=== PATIENT | female | born 1980 | race Two or more races ===

== ENCOUNTER 2019-05-05 18:51 | Emergency (ER) | payer BC ==
[~2019-05-05] VITALS: Ht 165.1 cm; Wt 103.4 kg
[2019-05-05 19:59] LABS: BASO % 0 % (0-3); EOS # 0.2 x10^3/uL (0.0-0.7); EOS % 3 % (0-3); HEMATOCRIT 42.3 % (36.0-47.0); LYMPH # 2.5 x10^3/uL (1.0-4.8); LYMPH % 28 % (24-48); MEAN CORPUSCULAR HEMOGLOBIN 30 pg (25-35); MEAN CORPUSCULAR HGB CONC 33 g/dL (31-37); MEAN CORPUSCULAR VOLUME 91 fL (79-100); MONO # 0.7 x10^3/uL (0.0-1.1); MONO % 7 % (0-9); NEUT # 5.5 x10^3/uL (1.8-7.7); NEUT % 62 % (31-73); PLATELET COUNT 223 x10^3/uL (140-400); RED BLOOD COUNT 4.64 x10^6/uL (3.50-5.40); WHITE BLOOD COUNT 8.9 x10^3/uL (4.0-11.0)
[2019-05-05] MEDS ORDERED: ASPIRIN 325 MG TABLET PO ONE (20:00)
--- NOTE | 2019-05-05 20:03 | PHYS DOC ---
Adult General Chief Complaint Chief Complaint: CHEST PAIN [facility] HPI Patient is a 39 year old female who presented to ER today for evaluation of 3 day history of left-sided chest pain that radiated to her left arm. Patient denies any history hypertension, no history of diabetes, no history of coronary artery disease. Patient denies any recent travel or operation. She denies any history of blood clot disorder no family history of coronary artery disease. Patient denies any cough or fever. She says she had this type of chest pain in the past, was evaluated in the emergency room before did not find anything wrong. She denies any abdominal pain, no nausea vomiting. All other ROS is negative unless otherwise noted in HPI Review of Systems Review of Systems See above Current Medications Current Medications Current Medications Medications (Trade) Dose Ordered Sig/Honey Start Time Stop Time Status Last Admin Dose Admin Aspirin (Ashwin Aspirin) 325 mg 1X ONCE 05/05/19 20:00 05/05/19 20:01 DC 05/05/19 20:00 325 MG Potassium Chloride (Klor-Con) 40 meq 1X ONCE 05/05/19 22:30 05/05/19 22:31 DC 05/05/19 22:20 40 MEQ Allergies Allergies Allergies Coded Allergies Type Severity Reaction Last Updated Verified No Known Drug Allergies 05/05/19 No Physical Exam Physical Exam See above Constitutional: Well developed, well nourished, no acute distress, non-toxic appearance. [] HENT: Normocephalic, atraumatic, bilateral external ears normal, oropharynx moist, no oral exudates, nose normal. [] Eyes: PERRLA, EOMI, conjunctiva normal, no discharge. [] Neck: Normal range of motion, no tenderness, supple, no stridor. [] Cardiovascular:Heart rate regular rhythm, no murmur [] Lungs & Thorax: Bilateral breath sounds clear to auscultation [] Abdomen: Bowel sounds normal, soft, no tenderness, no masses, no pulsatile masses. [] Skin: Warm, dry, no erythema, no rash. [] Back: No tenderness, no CVA tenderness. [] Extremities: No tenderness, no cyanosis, no clubbing, ROM intact, no edema. [] Neurologic: Alert and oriented X 3, normal motor function, normal sensory function, no focal deficits noted. [] Psychologic: Affect normal, judgement normal, mood normal. [] Current Patient Data Vital Signs Vital Signs Date Time Temp Pulse Resp B/P (MAP) Pulse Ox O2 Delivery O2 Flow Rate FiO2 05/05/19 20:38 90 16 124/79 (94) 96 Room Air 05/05/19 19:03 98.7 98.7 Lab Values Laboratory Tests Test 05/05/19 19:25 05/05/19 20:05 White Blood Count 8.9 x10^3/uL (4.0-11.0) Red Blood Count 4.64 x10^6/uL (3.50-5.40) Hemoglobin 14.0 g/dL (12.0-15.5) Hematocrit 42.3 % (36.0-47.0) Mean Corpuscular Volume 91 fL (79-100) Mean Corpuscular Hemoglobin 30 pg (25-35) Mean Corpuscular Hemoglobin Concent 33 g/dL (31-37) Red Cell Distribution Width 13.0 % (11.5-14.5) Platelet Count 223 x10^3/uL (140-400) Neutrophils (%) (Auto) 62 % (31-73) Lymphocytes (%) (Auto) 28 % (24-48) Monocytes (%) (Auto) 7 % (0-9) Eosinophils (%) (Auto) 3 % (0-3) Basophils (%) (Auto) 0 % (0-3) Neutrophils # (Auto) 5.5 x10^3/uL (1.8-7.7) Lymphocytes # (Auto) 2.5 x10^3/uL (1.0-4.8) Monocytes # (Auto) 0.7 x10^3/uL (0.0-1.1) Eosinophils # (Auto) 0.2 x10^3/uL (0.0-0.7) Basophils # (Auto) 0.0 x10^3/uL (0.0-0.2) Prothrombin Time 12.2 SEC (11.7-14.0) Prothrombin Time INR 0.9 (0.8-1.1) D-Dimer (Molly) 0.31 ug/mlFEU (0.00-0.50) Sodium Level 141 mmol/L (136-145) Potassium Level 3.3 mmol/L (3.5-5.1) L Chloride Level 102 mmol/L (98-107) Carbon Dioxide Level 28 mmol/L (21-32) Anion Gap 11 (6-14) Blood Urea Nitrogen 11 mg/dL (7-20) Creatinine 0.8 mg/dL (0.6-1.0) Estimated GFR (Cockcroft-Gault) 79.0 BUN/Creatinine Ratio 14 (6-20) Glucose Level 111 mg/dL (70-99) H Calcium Level 9.0 mg/dL (8.5-10.1) Magnesium Level 1.7 mg/dL (1.8-2.4) L Total Bilirubin 0.3 mg/dL (0.2-1.0) Aspartate Amino Transferase (AST) 17 U/L (15-37) Alanine Aminotransferase (ALT) 24 U/L (14-59) Alkaline Phosphatase 118 U/L (46-116) H Troponin I Quantitative < 0.017 ng/mL (0.000-0.055) ZI-Mxw-A-Type Natriuretic Peptide 31 pg/mL (0-124) Total Protein 7.4 g/dL (6.4-8.2) Albumin 3.7 g/dL (3.4-5.0) Albumin/Globulin Ratio 1.0 (1.0-1.7) Lipase 124 U/L (73-393) Urine Collection Type Unknown Urine Color Yellow Urine Clarity Clear Urine pH 6.0 Urine Specific [place] 1.020 Urine Protein Negative mg/dL (NEG-TRACE) Urine Glucose (UA) Negative mg/dL (NEG) Urine Ketones (Stick) Negative mg/dL (NEG) Urine Blood Negative (NEG) Urine Nitrite Negative (NEG) Urine Bilirubin Negative (NEG) Urine Urobilinogen Dipstick 1.0 mg/dL (0.2 mg/dL) Urine Leukocyte Esterase Negative (NEG) Urine RBC Rare /HPF (0-2) Urine WBC 0 /HPF (0-4) Urine Squamous Epithelial Cells Mod /LPF Urine Amorphous Sediment Present /HPF Urine Bacteria 0 /HPF (0-FEW) Urine Mucus Mod /LPF Urine Test Negative (NEG) Laboratory Tests 05/05/19 19:25 Laboratory Tests 05/05/19 19:25 EKG EKG EKG was done and read by this physician at 1907, heart rate of 107 beats per minute, sinus tachycardia, no STEMI. Radiology/Procedures Radiology/Procedures [][facility] [address] [place] [address] IMAGING REPORT Signed PATIENT: AUBREY CRUZCOUNT: [id number] : 1980 LOCATION: ER AGE: 39 SEX: F EXAM STATUS: PRE ER ORD. PHYSICIAN: CALLY MCKEON DO REASON: CHEST PAIN /PREG TEST 16 PROCEDURE: PORTABLE CHEST 1V PORTABLE CHEST 1V Clinical History: Technique: AP view of the chest was obtained at 05/05/2019 7:47 PM. Comparison: None. Findings: The cardiomediastinal silhouette is normal. The pulmonary vasculature is normal. The lungs and pleural margins are clear. Impression: No evidence of an acute cardiopulmonary process. Electronically signed by: Raymon Burrell III, MD (05/05/2019 10:50 PM) [facility] DICTATED and SIGNED BY: RAYMON BURRELL III, MD DATE: 05/05/19 490 Course & Med Decision Making Course & Med Decision Making Pertinent Labs and Imaging studies reviewed. (See chart for details) [] Dragon Disclaimer Dragon Disclaimer This electronic medical record was generated, in whole or in part, using a voice recognition dictation system. Departure Departure Impression: Primary Impression: Chest pain Disposition: HOME, SELF-CARE Condition: STABLE Patient Instructions: Chest Pain (Nonspecific) The HEART Score for CP Pts HEART Score for Chest Pain: HEART Score for Chest Pain Response (Comments) Value History Slighlty/Non-Suspicious 0 ECG Normal 0 Age < 45 0 Risk Factors No Risk Factors 0 Troponin < Normal Limit 0 Total 0 Risk Factors: Risk Factors: DM, Current or recent (<one month) smoker, HTN, HLP, family history of CAD, obesity. Risk Scores: Score 0 - 3: 2.5% MACE over next 6 weeks - Discharge Home Score 4 - 6: 20.3% MACE over next 6 weeks - Admit for Clinical Observation Score 7 - 10: 72.7% MACE over next 6 weeks - Early Invasive Strategies CALLY MCKEON DO May 05, 2019 20:03
[2019-05-05 20:06] LABS: CREATININE 0.8 mg/dL (0.6-1.0); POTASSIUM 3.3 mmol/L (3.5-5.1)
[2019-05-05 20:11] LABS: ALBUMIN 3.7 g/dL (3.4-5.0); MAGNESIUM 1.7 mg/dL (1.8-2.4); TOTAL BILIRUBIN 0.3 mg/dL (0.2-1.0); TOTAL PROTEIN 7.4 g/dL (6.4-8.2)
[2019-05-05 20:12] LABS: PROTHROMBIN TIME PATIENT 12.2 SEC (11.7-14.0)
[2019-05-05 20:33] LABS: CLARITY,URINE CLEAR; COLOR,URINE YELLOW
[2019-05-05 20:34] LABS: BILIRUBIN,URINE NEGATIVE (NEG); NITRITE,URINE NEGATIVE (NEG); PROTEIN,URINE NEGATIVE (NEG-TRACE)
[2019-05-05 20:46] LABS: AMORPHOUS SEDIMENT,UR PRESENT /HPF; BACTERIA,URINE 0 /HPF (0-FEW); RBC,URINE RARE /HPF (0-2); SQUAMOUS EPITHELIAL CELL,UR MOD /LPF; WBC,URINE 0 /HPF (0-4)
[2019-05-05 22:22] LABS: U PREG PATIENT NEGATIVE (NEG)
[2019-05-05] MEDS ORDERED: POTASSIUM CHLORIDE 20 MEQ TABLET.ER. PO ONE (22:30)
--- NOTE | 2019-05-05 22:53 | RAD ---
PORTABLE CHEST 1V Clinical History: Technique: AP view of the chest was obtained at 05/05/2019 7:47 PM. Comparison: None. Findings: The cardiomediastinal silhouette is normal. The pulmonary vasculature is normal. The lungs and pleural margins are clear. Impression: No evidence of an acute cardiopulmonary process. Electronically signed by: Qamar Nieves III, MD (05/05/2019 10:50 PM) [facility]
[2019-05-05 23:38] VITALS: BP 120/71
--- NOTE | 2019-05-06 13:53 | EKG ---
[facility] [address] [place] [address] Test Date: 2019-05-05 Test Time: 19:07:47 Pat Name: AUBREY CRUZ Department: Room: Gender: F Manager Animation: : 1980 Requested By: CALLY MCKEON Order Number: [id number] Reading MD: Measurements Intervals [place] Rate: 107 P: 74 RI: 134 QRS: 12 QRSD: 86 T: 21 QT: 330 QTc: 440 Interpretive Statements SINUS TACHYCARDIA QRS(T) CONTOUR ABNORMALITY CONSIDER ANTEROLATERAL MYOCARDIAL DAMAGE POSSIBLY ABNORMAL ECG RI6.01 No previous ECG available for comparison
== END 2019-05-05 23:55 | disposition home or self-care (01) ==
LOC: ER 18:51
DX: R07.89 Other chest pain (principal); Z79.82 Long term (current) use of aspirin
CPT/HCPCS: 36415; 71045; 80053; 81001; 81025; 83690; 83735; 83880; 84484; 85025; 85379; 85610; 93005; 99285

== ENCOUNTER 2020-03-17 09:39 | Emergency (ER) | payer BC ==
[~2020-03-17] VITALS: Ht 165.1 cm; Wt 95.7 kg
[2020-03-17] MEDS ORDERED: IV NORMAL SALINE 1000ML BAG 1,000 ML IV ONE (10:00)
[2020-03-17] MEDS ORDERED: MORPHINE SULFATE 4 MG/ML VIAL. IV ONE (10:00)
[2020-03-17] MEDS ORDERED: ONDANSETRON PF 4 MG/2 ML VIAL. IVP ONE (10:00)
[2020-03-17 10:02] LABS: BILIRUBIN,URINE NEGATIVE (NEG); CLARITY,URINE CLEAR; COLOR,URINE YELLOW; NITRITE,URINE NEGATIVE (NEG); PROTEIN,URINE 30 mg/dL (NEG-TRACE); UROBILINOGEN,URINE 0.2 mg/dL (0.2 mg/dL)
--- NOTE | 2020-03-17 10:05 | PHYS DOC ---
Past Medical History Past Medical History: No Pertinent History Past Surgical History: No Surgical History Smoking Status: Former Smoker Alcohol Use: Occasionally Drug Use: None General Adult EDM: Chief Complaint: ABDOMINAL PAIN HPI: HPI: Patient is a 39 year old female who presented to ER today for evaluation of left flank pain that radiated to her left groin area started at 7 AM suddenly this morning. Patient also complains of nausea but no vomiting. Patient denies any fever, no diarrhea, no urinary frequency or urgency. Patient denies any history of kidney stone. Patient denies any pain at this in the past. Patient denies any cough or fever. Review of Systems: Review of Systems: Constitutional: Denies fever or chills. [] Eyes: Denies change in visual acuity. [] HENT: Denies nasal congestion or sore throat. [] Respiratory: Denies cough or shortness of breath. [] Cardiovascular: Denies chest pain or edema. [] GI: Positive for left side abdominal pain, no diarrhea, no vomiting : Denies dysuria. [] Musculoskeletal: Denies back pain or joint pain. [] Integument: Denies rash. [] Neurologic: Denies headache, focal weakness or sensory changes. [] Endocrine: Denies polyuria or polydipsia. [] Lymphatic: Denies swollen glands. [] Psychiatric: Denies depression or anxiety. [] Heart Score: Risk Factors: Risk Factors: DM, Current or recent (<one month) smoker, HTN, HLP, family history of CAD, obesity. Risk Scores: Score 0 - 3: 2.5% MACE over next 6 weeks - Discharge Home Score 4 - 6: 20.3% MACE over next 6 weeks - Admit for Clinical Observation Score 7 - 10: 72.7% MACE over next 6 weeks - Early Invasive Strategies Current Medications: Current Medications Medications (Trade) Dose Ordered Sig/Honey Start Time Stop Time Status Last Admin Dose Admin Morphine Sulfate (Morphine Sulfate) 4 mg 1X ONCE 03/17/20 10:00 03/17/20 10:01 DC Ondansetron HCl (Zofran) 4 mg 1X ONCE 03/17/20 10:00 03/17/20 10:01 DC Sodium Chloride 1,000 ml @ 1,000 mls/hr 1X ONCE 03/17/20 10:00 03/17/20 10:59 Allergies: Allergies: Allergies Coded Allergies Type Severity Reaction Last Updated Verified No Known Drug Allergies 05/05/19 No Physical Exam: PE: Constitutional: Well developed, well nourished, no acute distress, non-toxic appearance. [] HENT: Normocephalic, atraumatic, bilateral external ears normal, oropharynx moist, no oral exudates, nose normal. [] Eyes: PERRLA, EOMI, conjunctiva normal, no discharge. [] Neck: Normal range of motion, no tenderness, supple, no stridor. [] Cardiovascular:Heart rate regular rhythm, no murmur [] Lungs & Thorax: Bilateral breath sounds clear to auscultation [] Abdomen: Bowel sounds normal, soft, There is tenderness in LUQ AND LLQ AREA, NO REBOUND, NO GUARDING, no masses, no pulsatile masses. [] Skin: Warm, dry, no erythema, no rash. [] Back: No tenderness, Positive for left CVA tenderness. [] Extremities: No tenderness, no cyanosis, no clubbing, ROM intact, no edema. [] Neurologic: Alert and oriented X 3, normal motor function, normal sensory function, no focal deficits noted. [] Psychologic: Affect normal, judgement normal, mood normal. [] Current Patient Data: Labs: Laboratory Tests Test 03/17/20 09:50 03/17/20 09:55 03/17/20 10:00 Urine Collection Type Unknown Urine Color Yellow Urine Clarity Clear Urine pH 5.0 Urine Specific [place] 1.025 Urine Protein 30 mg/dL Urine Glucose (UA) Negative mg/dL Urine Ketones (Stick) Negative mg/dL Urine Blood Large Urine Nitrite Negative Urine Bilirubin Negative Urine Urobilinogen Dipstick 0.2 mg/dL Urine Leukocyte Esterase Negative Urine RBC >40 /HPF Urine WBC 0 /HPF Urine Squamous Epithelial Cells Few /LPF Urine Bacteria Few /HPF Urine Hyaline Casts Occasional /HPF Urine Mucus Slight /LPF Bedside Urine HCG, Qualitative Hcg negative White Blood Count 11.4 x10^3/uL Red Blood Count 4.69 x10^6/uL Hemoglobin 14.3 g/dL Hematocrit 42.9 % Mean Corpuscular Volume 92 fL Mean Corpuscular Hemoglobin 31 pg Mean Corpuscular Hemoglobin Concent 33 g/dL Red Cell Distribution Width 13.0 % Platelet Count 217 x10^3/uL Neutrophils (%) (Auto) 75 % Lymphocytes (%) (Auto) 18 % Monocytes (%) (Auto) 6 % Eosinophils (%) (Auto) 1 % Basophils (%) (Auto) 0 % Neutrophils # (Auto) 8.6 x10^3/uL Lymphocytes # (Auto) 2.0 x10^3/uL Monocytes # (Auto) 0.6 x10^3/uL Eosinophils # (Auto) 0.2 x10^3/uL Basophils # (Auto) 0.0 x10^3/uL Sodium Level 136 mmol/L Potassium Level 3.3 mmol/L Chloride Level 100 mmol/L Carbon Dioxide Level 24 mmol/L Anion Gap 12 Blood Urea Nitrogen 15 mg/dL Creatinine 0.8 mg/dL Estimated GFR (Cockcroft-Gault) 79.0 BUN/Creatinine Ratio 19 Glucose Level 133 mg/dL Calcium Level 9.0 mg/dL Magnesium Level 2.1 mg/dL Total Bilirubin 0.2 mg/dL Aspartate Amino Transf (AST/SGOT) 21 U/L Alanine Aminotransferase (ALT/SGPT) 24 U/L Alkaline Phosphatase 109 U/L Total Protein 8.2 g/dL Albumin 4.0 g/dL Albumin/Globulin Ratio 1.0 Current Medications Medications (Trade) Dose Ordered Sig/Honey Route PRN Reason Start Time Stop Time Status Last Admin Dose Admin Sodium Chloride 1,000 ml @ 1,000 mls/hr 1X ONCE IV 03/17/20 10:00 03/17/20 10:59 DC 03/17/20 10:11 Morphine Sulfate (Morphine Sulfate) 4 mg 1X ONCE IV 03/17/20 10:00 03/17/20 10:01 DC 03/17/20 10:12 Ondansetron HCl (Zofran) 4 mg 1X ONCE IVP 03/17/20 10:00 03/17/20 10:01 DC 03/17/20 10:12 Ketorolac Tromethamine (Toradol 30mg Vial) 30 mg 1X ONCE IVP 03/17/20 10:15 03/17/20 10:16 DC 03/17/20 10:14 Tamsulosin HCl (Flomax) 0.4 mg 1X ONCE PO 03/17/20 11:15 03/17/20 11:16 DC 03/17/20 11:20 Potassium Chloride (Klor-Con) 40 meq 1X ONCE PO 03/17/20 11:45 03/17/20 11:46 DC EKG: EKG: [] Radiology/Procedures: Radiology/Procedures: [facility] [address] [place], [place] [id number] IMAGING REPORT Signed PATIENT: AUBREY CRUZ DACCOUNT: [id number] : 1980 LOCATION: ER AGE: 39 SEX: F EXAM STATUS: PRE ER ORD. PHYSICIAN: CALLY MCKEON DO REASON: left side flank pain PROCEDURE: CT ABDOMEN PELVIS WO CONTRAST PQRS Compliance Statement: One or more of the following individualized dose reduction techniques were utilized for this examination: 1. Automated exposure control 2. Adjustment of the mA and/or kV according to patient size 3. Use of iterative reconstruction technique CT abdomen/pelvis without contrast 03/17/2020 10:27 AM INDICATION: Left-sided flank pain COMPARISON: None available TECHNIQUE: Multiple axial CT images of the abdomen and pelvis were obtained without intravenous contrast. Coronal and sagittal reformats are provided. FINDINGS: There is minimal bibasilar subsegmental atelectasis. There is a 2 mm noncalcified pulmonary nodule along the minor fissure (series 2, image 3), favoring benign etiology. There is a 5.5 mm left ureteral calculus in the mid left ureter resulting in mild left hydroureteronephrosis. 2 additional right renal nonobstructing calculi are identified measuring up to 3mm. Evaluation of the solid abdominal viscera is limited by lack of IV contrast. Liver, spleen, bilateral adrenal glands, pancreas, gallbladder, and bowel are normal. No bowel obstruction or inflammation. Appendix is normal. Pelvic organs are within normal limits by CT. No suspicious osseous abnormality. IMPRESSION: There is a 5.5 mm left ureteral calculus in the mid left ureter resulting in mild left hydroureteronephrosis. 2 additional right renal nonobstructing calculi are identified measuring up to 3mm. Electronically signed by: Lucia Castrejon MD (03/17/2020 10:50 AM) [facility] DICTATED and SIGNED BY: LUCIA CASTREJON MD DATE: 03/17/20 0975 Course & Med Decision Making: Course & Med Decision Making Pertinent Labs and Imaging studies reviewed. (See chart for details) Patient is a 39-year-old female who was evaluated in ER due to left flank pain, CT scan show a 5.5 mini medial ureteral stone on the left side, mild hydronephrosis. Patient was given pain medication in ER, she feels much better. Patient had normal kidney function test. Patient will be discharged home, she will need to follow-up with urology for outpatient evaluation and treatment. Patient is amenable to plan of care Terence Disclaimer: Terence Disclaimer: This electronic medical record was generated, in whole or in part, using a voice recognition dictation system. Departure Departure Impression: Primary Impression: Kidney stone on left side Disposition: 01 HOME SELF CARE/HOMELESS Condition: IMPROVED Referrals: UNKNOWN PCP NAME (PCP) PLEASE CALL [facility] UROLOGY DEPARTMENT FOR FOLLOW UP THIS WEEK. The phone number is [phone] Patient Instructions: Kidney Stones Additional Instructions: Thank you for visiting our Emergency Department. We appreciate you trusting us with your care. If any additional problems come up don't hesitate to return to visit us. Please follow up with your primary care provider so they can plan additional care if needed and know about the problem that you had. If symptoms worsen come back to the Emergency Department. Any concerning symptoms that start such as chest pain, shortness of air, weakness or numbness on one side of the body, running high fevers or any other concerning symptoms return to the ER. Scripts Ondansetron Hcl (ZOFRAN) 4 Mg Tablet 1 TAB PO Q6HRS PRN for NAUSEA, #20 TAB Prov: CALLY MCKEON DO 03/17/20 Hydrocodone/Apap 5-325 (NORCO 5-325 TABLET) 1 Each Tablet 1 TAB PO QID PRN for PAIN, #20 TAB Prov: CALLY MCKEON DO 03/17/20 Naproxen Sodium (ANAPROX DS) 550 Mg Tablet 1 TAB PO BID PRN for PAIN for 15 Days, #30 TAB 0 Refills Prov: CALLY MCKEON DO 03/17/20 Tamsulosin Hcl (FLOMAX) 0.4 Mg Cap.er.24h 1 CAP PO DAILY, #14 CAP 11 Refills Prov: CALLY MCKEON DO 03/17/20 CALLY MCKEON DO Mar 17, 2020 10:04
[2020-03-17] MEDS ORDERED: KETOROLAC 30 MG/ML VIAL. IVP ONE (10:15)
[2020-03-17 10:28] LABS: RBC,URINE >40 /HPF (0-2)
[2020-03-17 10:29] LABS: BACTERIA,URINE FEW /HPF (0-FEW); HYALINE CASTS, URINE OCCASIONAL /HPF; WBC,URINE 0 /HPF (0-4)
--- NOTE | 2020-03-17 10:53 | RAD ---
PQRS Compliance Statement: One or more of the following individualized dose reduction techniques were utilized for this examination: 1. Automated exposure control 2. Adjustment of the mA and/or kV according to patient size 3. Use of iterative reconstruction technique CT abdomen/pelvis without contrast 03/17/2020 10:27 AM INDICATION: Left-sided flank pain COMPARISON: None available TECHNIQUE: Multiple axial CT images of the abdomen and pelvis were obtained without intravenous contrast. Coronal and sagittal reformats are provided. FINDINGS: There is minimal bibasilar subsegmental atelectasis. There is a 2 mm noncalcified pulmonary nodule along the minor fissure (series 2, image 3), favoring benign etiology. There is a 5.5 mm left ureteral calculus in the mid left ureter resulting in mild left hydroureteronephrosis. 2 additional right renal nonobstructing calculi are identified measuring up to 3mm. Evaluation of the solid abdominal viscera is limited by lack of IV contrast. Liver, spleen, bilateral adrenal glands, pancreas, gallbladder, and bowel are normal. No bowel obstruction or inflammation. Appendix is normal. Pelvic organs are within normal limits by CT. No suspicious osseous abnormality. IMPRESSION: There is a 5.5 mm left ureteral calculus in the mid left ureter resulting in mild left hydroureteronephrosis. 2 additional right renal nonobstructing calculi are identified measuring up to 3mm. Electronically signed by: Melina Gooden MD (03/17/2020 10:50 AM) [facility]
[2020-03-17 11:08] LABS: BASO % 0 % (0-3); EOS # 0.2 x10^3/uL (0.0-0.7); EOS % 1 % (0-3); HEMATOCRIT 42.9 % (36.0-47.0); HEMOGLOBIN 14.3 g/dL (12.0-15.5); LYMPH % 18 % (24-48); MEAN CORPUSCULAR HEMOGLOBIN 31 pg (25-35); MEAN CORPUSCULAR HGB CONC 33 g/dL (31-37); MEAN CORPUSCULAR VOLUME 92 fL (79-100); MONO # 0.6 x10^3/uL (0.0-1.1); MONO % 6 % (0-9); NEUT # 8.6 x10^3/uL (1.8-7.7); NEUT % 75 % (31-73); PLATELET COUNT 217 x10^3/uL (140-400); RED BLOOD COUNT 4.69 x10^6/uL (3.50-5.40); WHITE BLOOD COUNT 11.4 x10^3/uL (4.0-11.0)
[2020-03-17] MEDS ORDERED: TAMSULOSIN 0.4 MG CAP.ER.24H. PO ONE (11:15)
[2020-03-17 11:19] LABS: CREATININE 0.8 mg/dL (0.6-1.0); POTASSIUM 3.3 mmol/L (3.5-5.1)
[2020-03-17 11:24] LABS: MAGNESIUM 2.1 mg/dL (1.8-2.4); TOTAL BILIRUBIN 0.2 mg/dL (0.2-1.0); TOTAL PROTEIN 8.2 g/dL (6.4-8.2)
[2020-03-17] MEDS ORDERED: POTASSIUM CHLORIDE 20 MEQ TABLET.ER. PO ONE (11:45)
[2020-03-17] MEDS ORDERED: HYDR-3164 PO (12:01)
[2020-03-17] MEDS ORDERED: ONDA4TAB7 PO (12:01)
[2020-03-17] MEDS ORDERED: NAPR-682 PO (12:01)
[2020-03-17] MEDS ORDERED: TAMS0.4C97 PO (12:01)
[2020-03-17 12:02] VITALS: BP 137/77
== END 2020-03-17 12:10 | disposition home or self-care (01) ==
LOC: ER 09:39
DX: N20.0 Calculus of kidney (principal); Z87.891 Personal history of nicotine dependence
CPT/HCPCS: 36415; 74176; 80053; 81001; 81025; 83735; 85025; 96361; 96374; 96375; 99284; J1885; J2270; J2405; J7030

== ENCOUNTER 2021-08-03 | Emergency (ER) | payer BC ==
[~2021-08-03] VITALS: Ht 162.6 cm; Wt 96.8 kg
[~2021-08-03] MED LIST: ASPI-630 PO; BENZ-8 PO; DEXT30SU19 PO; HYDR-3164 PO; METF500T16 PO; NAPR-682 PO; ONDA4TAB7 PO; TAMS0.4C97 PO
[2021-08-03 01:43] LABS: BACTERIA,URINE FEW /HPF (0-FEW); RBC,URINE 0 /HPF (0-2)
[2021-08-03 01:52] LABS: BASO % 0 % (0-3); EOS # 0.1 x10^3/uL (0.0-0.7); EOS % 1 % (0-3); HEMATOCRIT 40.9 % (36.0-47.0); HEMOGLOBIN 13.8 g/dL (12.0-15.5); LYMPH # 2.2 x10^3/uL (1.0-4.8); LYMPH % 19 % (24-48); MEAN CORPUSCULAR HEMOGLOBIN 30 pg (25-35); MEAN CORPUSCULAR HGB CONC 34 g/dL (31-37); MEAN CORPUSCULAR VOLUME 88 fL (79-100); MONO # 0.8 x10^3/uL (0.0-1.1); MONO % 7 % (0-9); NEUT # 8.2 x10^3/uL (1.8-7.7); NEUT % 72 % (31-73); PLATELET COUNT 312 x10^3/uL (140-400); RED BLOOD COUNT 4.65 x10^6/uL (3.50-5.40); WHITE BLOOD COUNT 11.5 x10^3/uL (4.0-11.0)
[2021-08-03 01:59] LABS: CREATININE 0.8 mg/dL (0.6-1.0); GFR 78.3
[2021-08-03 02:05] LABS: ALBUMIN 3.8 g/dL (3.4-5.0); TOTAL BILIRUBIN 0.3 mg/dL (0.2-1.0); TOTAL PROTEIN 7.7 g/dL (6.4-8.2)
--- NOTE | 2021-08-03 04:04 | RAD ---
EXAMINATION: US ABDOMEN LIMITED 08/03/2021 2:16 AM INDICATION: Right upper quadrant pain, history of stones TECHNIQUE: [place] scale and color Doppler ultrasound images of the right upper quadrant were obtained. COMPARISON: CT abdomen 03/17/2020. FINDINGS: Liver: The liver is normal in size measuring 17.5 cm in length. Normal hepatic echogenicity. No foc al liver lesion. Gallbladder: The gallbladder is normal in caliber. There is cholelithiasis with a 1 cm echogenic sha dowing stones in the gallbladder. The gallbladder wall is normal in thickness measuring 1.8 mm. Bile ducts: The common bile duct is normal measuring 4 mm. No intrahepatic biliary duct dilatation. Right kidney: The right kidney measures 10.1 x 4.6 x 4.3 cm. Normal cortical thickness and echogenic ity. No hydronephrosis. Other: IVC is normal where visualized. The pancreas is normal where visualized. IMPRESSION: Cholelithiasis. No sonographic evidence of acute cholecystitis. Electronically signed by: Talya Romero MD (08/03/2021 4:01 AM) [facility]
[2021-08-03 04:57] VITALS: BP 137/80
[2021-08-03] MEDS ORDERED: DICY10CA3 PO (04:57)
[2021-08-03] MEDS ORDERED: OMEP20TA63 PO (04:57)
--- NOTE | 2021-08-03 04:58 | PHYS DOC ---
Past Medical History Past Medical History: Other Additional Past Medical Histor: JILLIAN ROGERS, HOSPITALIZED FOR 1 MONTH 03/23 FOR COVID Past Surgical History: No Surgical History Smoking Status: Never Smoker Alcohol Use: Occasionally Drug Use: None General Adult EDM: Chief Complaint: ABDOMINAL PAIN HPI: HPI: Patient is a 41 year old female who presents with right upper quadrant abdominal pain. History of cholelithiasis. Has surgery scheduled on the seventh. Came in today because the pain became unbearable. Has some slight nausea and cough. No chest pain or shortness of breath. Denies any recent alcohol use. Has not been completely adherent to a gallbladder diet. Review of Systems: Review of Systems: Constitutional: Denies fever or chills. [] Eyes: Denies change in visual acuity. [] HENT: Denies nasal congestion or sore throat. [] Respiratory: Denies cough or shortness of breath. [] Cardiovascular: Denies chest pain or edema. [] GI: Positive for right upper quadrant abdominal pain and nausea : Denies dysuria. [] Musculoskeletal: Denies back pain or joint pain. [] Integument: Denies rash. [] Neurologic: Denies headache, focal weakness or sensory changes. [] Endocrine: Denies polyuria or polydipsia. [] Lymphatic: Denies swollen glands. [] Psychiatric: Denies depression or anxiety. [] Heart Score: C/O Chest Pain: No Risk Factors: Risk Factors: DM, Current or recent (<one month) smoker, HTN, HLP, family history of CAD, obesity. Risk Scores: Score 0 - 3: 2.5% MACE over next 6 weeks - Discharge Home Score 4 - 6: 20.3% MACE over next 6 weeks - Admit for Clinical Observation Score 7 - 10: 72.7% MACE over next 6 weeks - Early Invasive Strategies Allergies: Allergies: Allergies Coded Allergies Type Severity Reaction Last Updated Verified No Known Drug Allergies 05/05/19 No Physical Exam: PE: Constitutional: Well developed, well nourished, no acute distress, non-toxic appearance. [] HENT: Normocephalic, atraumatic, bilateral external ears normal, oropharynx moist, no oral exudates, nose normal. [] Eyes: PERRLA, EOMI, conjunctiva normal, no discharge. [] Neck: Normal range of motion, no tenderness, supple, no stridor. [] Cardiovascular:Heart rate regular rhythm, no murmur [] Lungs & Thorax: Bilateral breath sounds clear to auscultation [] Abdomen: Bowel sounds normal, soft, no tenderness, no masses, no pulsatile masses. [] Skin: Warm, dry, no erythema, no rash. [] Back: No tenderness, no CVA tenderness. [] Extremities: No tenderness, no cyanosis, no clubbing, ROM intact, no edema. [] Neurologic: Alert and oriented X 3, normal motor function, normal sensory function, no focal deficits noted. [] Psychologic: Affect normal, judgement normal, mood normal. [] Current Patient Data: Labs: Laboratory Tests Test 08/03/21 01:23 08/03/21 01:26 08/03/21 01:40 Urine Collection Type Unknown Urine Color (Auto) Colorless Urine Turbidity Clear Urine pH (Auto) 5.0 (<5.0-8.0) Urine Specific [place] 1.007 (1.000-1.030) Urine Protein (Auto) Negative mg/dL (Negative) Urine Glucose (Auto)(UA) Negative mg/dL (Negative) Urine Ketones (Auto) Negative mg/dL (Negative) Urine Blood (Auto) Negative (Negative) Urine Nitrite Negative (Negative) Urine Bilirubin (Auto) Negative (Negative) Urine Urobilinogen (Auto) Normal mg/dL (Normal) Urine Leukocyte Esterase (Auto) Small (Negative) Urine RBC 0 /HPF (0-2) Urine WBC 5-10 /HPF (0-4) Urine Squamous Epithelial Cells Few /LPF Urine Bacteria Few /HPF (0-FEW) POC Urine HCG, Qualitative Hcg negative (Negative) White Blood Count 11.5 x10^3/uL (4.0-11.0) H Red Blood Count 4.65 x10^6/uL (3.50-5.40) Hemoglobin 13.8 g/dL (12.0-15.5) Hematocrit 40.9 % (36.0-47.0) Mean Corpuscular Volume 88 fL (79-100) Mean Corpuscular Hemoglobin 30 pg (25-35) Mean Corpuscular Hemoglobin Concent 34 g/dL (31-37) Red Cell Distribution Width 13.0 % (11.5-14.5) Platelet Count 312 x10^3/uL (140-400) Neutrophils (%) (Auto) 72 % (31-73) Lymphocytes (%) (Auto) 19 % (24-48) L Monocytes (%) (Auto) 7 % (0-9) Eosinophils (%) (Auto) 1 % (0-3) Basophils (%) (Auto) 0 % (0-3) Neutrophils # (Auto) 8.2 x10^3/uL (1.8-7.7) H Lymphocytes # (Auto) 2.2 x10^3/uL (1.0-4.8) Monocytes # (Auto) 0.8 x10^3/uL (0.0-1.1) Eosinophils # (Auto) 0.1 x10^3/uL (0.0-0.7) Basophils # (Auto) 0.0 x10^3/uL (0.0-0.2) Sodium Level 136 mmol/L (136-145) Potassium Level 4.0 mmol/L (3.5-5.1) Chloride Level 101 mmol/L (98-107) Carbon Dioxide Level 26 mmol/L (21-32) Anion Gap 9 (6-14) Blood Urea Nitrogen 21 mg/dL (7-20) H Creatinine 0.8 mg/dL (0.6-1.0) Estimated GFR (Cockcroft-Gault) 78.3 BUN/Creatinine Ratio 26 (6-20) H Glucose Level 103 mg/dL (70-99) H Calcium Level 9.0 mg/dL (8.5-10.1) Total Bilirubin 0.3 mg/dL (0.2-1.0) Aspartate Amino Transferase (AST) 15 U/L (15-37) Alanine Aminotransferase (ALT) 30 U/L (14-59) Alkaline Phosphatase 120 U/L (46-116) H Total Protein 7.7 g/dL (6.4-8.2) Albumin 3.8 g/dL (3.4-5.0) Albumin/Globulin Ratio 1.0 (1.0-1.7) Lipase 120 U/L (73-393) Laboratory Tests 08/03/21 01:40 Laboratory Tests 08/03/21 01:40 Vital Signs: Vital Signs Date Time Temp Pulse Resp B/P (MAP) Pulse Ox O2 Delivery O2 Flow Rate FiO2 08/03/21 01:02 98.2 86 18 139/79 (99) 99 Room Air 98.2 EKG: EKG: [] Radiology/Procedures: Radiology/Procedures: Ultrasound does not show acute cholecystitis [] Course & Med Decision Making: Course & Med Decision Making Pertinent Labs and Imaging studies reviewed. (See chart for details) Patient's lab work and ultrasound do not indicate acute cholecystitis. She has no significant tenderness on examination. We will have her continue to follow- up. Terence Disclaimer: Terence Disclaimer: This electronic medical record was generated, in whole or in part, using a voice recognition dictation system. Departure Departure Impression: Primary Impression: Biliary colic Disposition: HOME / SELF CARE / HOMELESS Condition: IMPROVED Referrals: SUSIE FLORES (PCP) Additional Instructions: Please follow-up with your surgeon in the meantime please adhere to a gallbladder diet. Scripts Dicyclomine Hcl (DICYCLOMINE HCL) 10 Mg Capsule 10 MG PO QID PRN for PAIN for 2 Days, #8 CAP Prov: GRACIA RICCI MD 08/03/21 Omeprazole Magnesium (PRILOSEC OTC) 20 Mg Tablet. 20 MG PO DAILY for 60 Days, #60 TAB Prov: GRACIA RICCI MD 08/03/21 GRACIA RICCI MD Aug 03, 2021 04:58
== END 2021-08-03 05:10 | disposition home or self-care (01) ==
LOC: ER
DX: R10.11 Right upper quadrant pain (principal); R11.0 Nausea; R05.9 Cough, unspecified
CPT/HCPCS: 36415; 76705; 80053; 81001; 81025; 83690; 85025; 87077; 87086; 87186; 99285-25

== ENCOUNTER → 2021-09-02 | Outpatient (CLI) | payer BC ==
[2021-08-03 04:57] VITALS: BP 137/80
[~2021-09-02] MED LIST changes: +DICY10CA3 PO; +OMEP20TA63 PO
--- NOTE | 2021-09-02 09:42 | RAD ---
XR CHEST 2V INDICATION: RESPIRATORY FAILURE. PNEUMONIA. . COMPARISON STUDY: 03/26/2021. FINDINGS: Lungs: Normal lung volume. Significantly improved bilateral opacities, with some residual linear opac ities along the periphery of the lungs. Pleura: No pleural effusion or pneumothorax. Heart and Mediastinum: The cardiomediastinal silhouette is normal. The great vessels of the thorax ar e normal. Bones and Soft Tissues: The bones and soft tissues are within normal limits. IMPRESSION: Significantly improved bilateral opacities, with some residual linear opacities along the periphery o f the lungs, possibly representing scarring Electronically signed by: Galo Toro MD (09/02/2021 9:40 AM) [id number]
== END ==
LOC: RAD 08:07
PROVIDERS: ATTEND Internal Medicine Critical Care Medicine
DX: R91.8 Other nonspecific abnormal finding of lung field (principal); J96.90 Respiratory failure, unspecified, unspecified whether with hypoxia or hypercapnia; J18.9 Pneumonia, unspecified organism
CPT/HCPCS: 71046